=== PATIENT | male | born 1940 | race Caucasian/White ===

== ENCOUNTER → 2018-08-15 19:31 | Outpatient (CLI) | payer OTHER, SELFPAY | PROVIDERS: Visit Provider Physician Assistant | DX: J02.9 Acute pharyngitis, unspecified (principal) | CPT/HCPCS: 87070 ==

== ENCOUNTER 2020-01-13 13:27 | Day surgery (SDC) | payer MEDICARE, SELFPAY ==
[2020-01-13 14:15] VITALS: BP 122/77; PULSE 64; RESP 16; TEMP 36.6; O2SAT 97; BMI 23.3
[2020-01-13] MEDS: LACTATED RINGERS 1,000 ML 200 ML IV (14:15)
--- NOTE | 2020-01-13 15:23 | P.HP_ITS ---
History of Present Illness History of Present Illness Date Patient Seen: 01/13/20 Time Patient Seen: 15:23 Chief complaint: [facility] [place] Narrative: The patient presents for colorectal sreening. He had previous colonoscopy 3 years ago that demonstrated numerous polyps. No personal or family history of colon cancer. On further history denies any recent gastrointestinal symptoms. No nausea, vomiting, abdominal pain, loss of appetite, unexplained weight loss, change in bowel habits, diarrhea, constipation, melena, hematochezia, or bright red blood per rectum. Patient History Medical History Seizure (Acute) Family & Social History Social History: household members children Tobacco & Substance use: Smoking Status Never smoker alcohol intake never Substance Use Type does not use Meds Home Medications and Allergies Home Medications Medication Instructions Recorded Confirmed Type ascorbic acid (vitamin C) [Vitamin 1 g PO DAILY 01/13/20 01/13/20 History C] cholecalciferol (vitamin D3) 25 mcg PO DAILY 01/13/20 01/13/20 History [Vitamin D3] timolol 1 drp EYE-BOTH DAILY 01/13/20 01/13/20 History Allergies Allergy/AdvReac Type Severity Reaction Status Date / Time levetiracetam [From Keppra] Allergy Rash Verified 01/13/20 14:08 Review of Systems Review of Systems Narrative: A 10 point review of systems is negative except as noted in the HPI Exam Vital Signs (past 8 hours): - 01/13/20 14:15 Temperature 98 F Pulse Rate 64 Respiratory Rate 16 Blood Pressure 122/77 Pulse Oximetry 97 Oxygen Delivery Method Room Air Narrative Exam Narrative: General-no acute distress, well nourished thin male HEENT-moist mucous membranes, no scleral icterus Neck-supple, no lymphadenopathy Chest- non labored respirations, clear to auscultation bilaterally Cardiac-regular rate no peripheral edema Abdomen-soft, nontender, non distended Extremities-warm, well perfused Neurological-alert and oriented, no focal deficits Assessment & Plan Assessment and plan (1) Screening for colon cancer: Status: Acute Assessment & Plan narrative: The patient requires colorectal screening and colonoscopy is recommended. Technical details were discussed. Risks, benefits, alternatives explained. Risks including but not limited to myocardial infarction, aspiration, bleeding, pain, missed lesion, incomplete examination, need for further radiographic studies, colonic perforation, and need for major abdominal surgery were discussed. All questions were answered to their satisfaction, and they are in agreement with this plan. COVID-19 COVID-19 status: Negative
--- NOTE | 2020-01-13 15:23 | PM.OP.ENDO ---
Operative Date/Time/Diagnoses Date of procedure: 01/13/20 Time of procedure: 15:23 Pre-op diagnosis: Screening colonoscopy Post-op diagnosis: same Procedure & Clinicians Study performed: Colonoscopy Same procedure as scheduled: Yes Indications: 79-year-old man history of multiple colon polyps is here for routine screening colonoscopy Surgeon: Ari Corea Procedure Notes SCOAP/Timeout: Performed Procedure in detail: Patient placed in left lateral recumbent position. Time out was performed. Procedural sedation was administered with Versed and Fentanyl. Examination began with a thorough inspection of the perianal area there was no evidence of fissures, fistulae, external hemorrhoids or cutaneous malignancy. The colonoscopy scope was then placed into the rectum the the lumen was insufflated with air. The scope was carefully advanced forward. Ultimately the cecum was intubated and confirmed by identification of the ileocecal valve and the confluence of the taenia. The scope was then slowly withdrawn examining colon thoroughly in all directions. In the rectum the rectal columns were identified and retroflexion of the scope was performed for inspection of the distal rectum and anal canal. The colonoscopy was notable for the followin. Quality of the preparation-fair 2. No masses polyps 3. Sigmoid diverticulosis Scope withdrawal time: 6 Sedation minutes: 26 Findings: diverticulosis Specimen(s): none sent Complications: none Impression: Normal colonoscopy Post-procedure Recommendations: High fiber diet Disposition: same day surgery
[2020-01-13] MEDS: MIDAZOLAM 5 MG/5 ML VIAL IV (15:31)
[2020-01-13] MEDS: fentaNYL 250 MCG/5 ML INJ IV (15:31)
[2020-01-13 16:02] VITALS: BP 118/79; PULSE 61; RESP 18; TEMP 36.2; O2SAT 96
[2020-01-13 16:07] VITALS: BP 112/76; PULSE 60; RESP 12; O2SAT 96
[2020-01-13 16:13] VITALS: BP 125/81; PULSE 62; RESP 16; O2SAT 98
[2020-01-13 16:17] VITALS: BP 127/78; PULSE 55; RESP 18; TEMP 36.4; O2SAT 97
--- NOTE | 2020-01-13 16:39 | SUR.PHASEII ---
reported off to CLARITA Goldman
[2020-01-13 16:41] VITALS: BP 131/79; PULSE 53; RESP 18; O2SAT 96
== END 2020-01-13 16:46 | disposition home or self-care (01) ==
PROVIDERS: PCP Family Medicine; Referring Provider Surgery; Visit Provider Surgery
PROC: 0DJD8ZZ Inspection of Lower Intestinal Tract, Via Natural or Artificial Opening Endoscopic (ICD-10-PCS; CPT 45378; principal; 2020-01-13 15:15)
DX: Z12.11 Encounter for screening for malignant neoplasm of colon (principal); Z86.010 Personal history of colon polyps; K57.30 Diverticulosis of large intestine without perforation or abscess without bleeding
CPT/HCPCS: G0105; 99152; 99153; J2250; J3010

== ENCOUNTER → 2021-01-04 10:25 | Outpatient (CLI) | payer MEDICARE, SELFPAY ==
--- NOTE | 2021-01-04 10:29 | DI.RAD.S_ITS ---
PROCEDURE: FL BARIUM SWALLOW W AIR COMPARISON: None. INDICATIONS: Esophageal spasm vs GERD FINDINGS: Normal motility is seen through the esophagus, there is no evidence for esophageal stricture, mass or erosion. The procedure was optimized for identification of reflux, and none was observed. IMPRESSION: Normal barium swallow, no evidence of esophageal mass, stricture, spasm or erosions. No reflux found. Dictated by: Adam Johansen M.D. on 01/04/2021 at 12:00 Approved by: Adam Johansen M.D. on 01/04/2021 at 12:01
== END ==
PROVIDERS: PCP Physician Assistant; Referring Provider Physician Assistant; Visit Provider Physician Assistant
DX: K22.4 Dyskinesia of esophagus (principal); K21.9 Gastro-esophageal reflux disease without esophagitis
CPT/HCPCS: 74221

== ENCOUNTER → 2021-07-09 13:04 | Outpatient (CLI) | payer MEDICARE, SELFPAY ==
[2021-07-09 19:33] LABS: Add Manual Diff / Slide Review NO; Basophils Absolute Auto 0 /uL (0-100); Basophils Percent Auto 0.9 % (0-2); Eosinophils Absolute Auto 200 /uL (0-450); Eosinophils Percent Auto 4.8 % (2-4); Hematocrit 40.4 % (41-53); Hemoglobin 13.8 g/dL (13.5-17.5); Lymphocytes Absolute Auto 900 /uL (1100-4500); Lymphocytes Percent Auto 25.4 % (25-40); Mean Corpuscular HGB Conc 34.1 % (30-36); Mean Corpuscular Hemoglobin 30.1 PG (26-34); Mean Corpuscular Volume 88.2 fL (80-100); Monocytes Absolute Auto 300 /uL (0-900); Monocytes Percent Auto 8.6 % (3-14); Neutrophils Absolute Auto 2200 /uL (1500-7000); Neutrophils Percent Auto 60.3 % (50-75); Platelet Count 190 X10^3/uL (150-400); Red Blood Cell Count 4.58 X10^6/uL (4.5-5.9); Red Cell Distribution Width 14.2 % (11.6-14.8); White Blood Cell Count 3.7 X10^3/uL (4.5-11.0)
[2021-07-09 19:45] LABS: Alanine Aminotransferase 66 IU/L (<50); Albumin 3.8 g/dL (3.5-5.0); Albumin Globulin Ratio 1.5 (1.0-2.8); Alkaline Phosphatase 91 U/L (38-126); Aspartate Aminotransferase 55 IU/L (17-59); BUN Creatinine Ratio 31.7 (6-22); Bilirubin Total 0.8 mg/dL (0.2-1.3); Blood Urea Nitrogen 26 mg/dL (9-20); Calcium 8.7 mg/dL (8.4-10.2); Carbon Dioxide 28 mmol/L (22-32); Chloride 105 mmol/L (98-107); Cholesterol 127 mg/dL (140-199); Estimated Glomerular Filt Rate > 60.0 mL/min (>60); Globulin 2.6 g/dL (1.7-4.1); Glucose 82 mg/dL (80-110); HDL Cholesterol 51 mg/dL (40-60); HEMOLYSIS < 15 (0-50); LDL Cholesterol Calculated 67 mg/dL (<100); Potassium 3.8 mmol/L (3.4-5.1); Sodium 139 mmol/L (137-145); Total Protein 6.4 g/dL (6.3-8.2); Triglycerides 46 mg/dL (35-150)
[2021-07-09 20:11] LABS: Prostate Specific Antigen Scrn 2.77 ng/mL (0.1-4.0)
== END ==
PROVIDERS: PCP Physician Assistant; Visit Provider Physician Assistant
DX: K22.4 Dyskinesia of esophagus (principal); Z12.5 Encounter for screening for malignant neoplasm of prostate; I10 Essential (primary) hypertension; E78.00 Pure hypercholesterolemia, unspecified
CPT/HCPCS: 80053; 80061; 85025; G0103

== ENCOUNTER → 2021-09-14 09:17 | Outpatient (CLI) | payer MEDICARE, SELFPAY ==
[2021-09-14 18:34] LABS: Alanine Aminotransferase 40 IU/L (<50); Albumin 4.2 g/dL (3.5-5.0); Albumin Globulin Ratio 1.5 (1.0-2.8); Alkaline Phosphatase 102 U/L (38-126); Aspartate Aminotransferase 50 IU/L (17-59); Blood Urea Nitrogen 16 mg/dL (9-20); Calcium 8.7 mg/dL (8.4-10.2); Carbon Dioxide 31 mmol/L (22-32); Chloride 104 mmol/L (98-107); Estimated Glomerular Filt Rate > 60 mL/min (>60); Globulin 2.8 g/dL (1.7-4.1); Glucose 91 mg/dL (80-110); HEMOLYSIS < 15 (0-50); Sodium 139 mmol/L (137-145)
[2021-09-14 18:41] LABS: NT-proBNP (BNP-Adult 18+) 99 pg/mL (<450)
[2021-09-14 18:46] LABS: Add Manual Diff / Slide Review NO; Basophils Absolute Auto 0 /uL (0-100); Basophils Percent Auto 0.8 % (0-2); Eosinophils Absolute Auto 200 /uL (0-450); Eosinophils Percent Auto 5.6 % (2-4); Hematocrit 45.8 % (41-53); Hemoglobin 15.6 g/dL (13.5-17.5); Lymphocytes Absolute Auto 1000 /uL (1100-4500); Lymphocytes Percent Auto 25.7 % (25-40); Mean Corpuscular Hemoglobin 30.1 PG (26-34); Mean Corpuscular Volume 88.5 fL (80-100); Monocytes Absolute Auto 300 /uL (0-900); Neutrophils Absolute Auto 2300 /uL (1500-7000); Neutrophils Percent Auto 59.9 % (50-75); Platelet Count 169 X10^3/uL (150-400); Red Blood Cell Count 5.17 X10^6/uL (4.5-5.9); Red Cell Distribution Width 13.5 % (11.6-14.8); White Blood Cell Count 3.9 X10^3/uL (4.5-11.0)
[2021-09-14 18:51] LABS: D Dimer 244 ng/mL (<230)
== END ==
PROVIDERS: PCP Physician Assistant; Visit Provider Physician Assistant
DX: R60.0 Localized edema (principal)
CPT/HCPCS: 80053; 83880; 85025; 85379

== ENCOUNTER 2021-09-20 08:52 | Emergency (ER) | payer MEDICARE, SELFPAY ==
[2021-09-20 09:00] VITALS: BP 118/80; PULSE 54; RESP 14; TEMP 36.8; O2SAT 98; BMI 24.3
--- NOTE | 2021-09-20 09:51 | ED.EXTPRO ---
HPI - Extremity Problem General Chief complaint: Extremity Problem,Nontraumatic Stated complaint: US for knees- Has clot in rt leg- sent by [facility] Time Seen by Provider: 09/20/21 09:39 Source: patient Mode of arrival: Ambulatory Limitations: no limitations History of Present Illness HPI Narrative: This is a 80-year-old male who comes emergency department for DVT rule out. Patient had some swelling of his right calf and into his foot for several days which has resolved. Remotely he had injury to his knee with a twisting injury. Over time and with PT this is improved. He is not having any pain he has not had any pain with the swelling in his leg. He states it was not warm or hot at any point. He has never had any numbness or tingling. He states he was using massage with sort of a hammering type motion and noticed a very small area of bruising over the calf which was never painful and appears to be improving. Patient is on medication for dyslipidemia. No prior blood clots, he is quite active in cycles regularly. He states the veins in his legs are prominent but this is normal for him. Patient does not have any family history of blood clots. He did have a D-dimer with his primary care on or kiss and it was noted to be slightly elevated at 244 on July 15. He states he was started on a blood thinner but he does not know the name I do not see it in their notes today. Patient has no other complaints at this time. Related Data Home Medications Medication Instructions Recorded Confirmed cholecalciferol (vitamin D3) 25 25 mcg PO DAILY 01/13/20 09/14/21 mcg (1,000 unit) tablet (Vitamin D3) timolol 0.5 % eye drops 1 drp EYE-BOTH DAILY 01/13/20 07/03/21 Previous Rx's Medication Instructions Recorded atorvastatin 80 mg tablet 80 mg PO BEDTIME #90 tab 02/26/21 hydrochlorothiazide 25 mg tablet 25 mg PO DAILY #30 tab 09/14/21 naproxen 500 mg tablet 500 mg PO BID PRN #40 tab 09/14/21 Allergies Allergy/AdvReac Type Severity Reaction Status Date / Time levetiracetam [From Kera] Allergy Rash Verified 09/21/21 09:44 Review of Systems Review of Systems ROS Unobtainable: All systems reviewed & are unremarkable except as noted in HPI and below Patient History Medical History Closed pertrochanteric fracture of left femur Rash and other nonspecific skin eruption Screening for colon cancer Seizure Social History household members: children Smoking Status: Never smoker alcohol intake: never Smoking Status: Never smoker alcohol intake frequency: holidays/special occasions only Substance Use Type: does not use Exam Narrative Exam Narrative: GENERAL: Alert and oriented x three, male in mild distress. HEENT: Head normocephalic, atraumatic, EOMI, pupils reactive, face symmetric, moist mucous membranes NECK: Supple, full range of motion CARDIOVASCULAR: Regular rate and rhythm without murmurs, rubs or gallops. RESPIRATORY: Breath sounds equal bilaterally, no wheezes rales or rhonchi. ABDOMEN: Soft, nontender. Normoactive bowel sounds all 4 quadrants. No guarding or rebound, rigidity, no mass EXTREMITIES: Normal range of motion, no clubbing or edema. Neurovascularly intact. Patient has prominent veins of bilateral lower extremities. He is nontender. He has a small quarter-sized area of ecchymosis on the right calf. It is nontender, there is no hematoma palpated under nice. There is no warmth, erythema or other skin changes to the leg. Negative Homans. NEUROLOGICAL: Cranial nerves II through XII grossly intact. Moving all extremities SKIN: Warm, dry, no petechiae, no rashes or lesions. Initial Vital Signs Initial Vital Signs: Vital Signs Temperature 98.3 F 09/20/21 09:00 Pulse Rate 54 L 09/20/21 09:00 Respiratory Rate 14 09/20/21 09:00 Blood Pressure 118/80 09/20/21 09:00 Pulse Oximetry 98 09/20/21 09:00 Course Orders Ordered: ED Orders 09/20/21 10:36 US periph venous low extrem rt Stat Vital Signs Vital signs: Vital Signs - 8 hr 09/20/21 09:00 Temperature 98.3 F Pulse Rate 54 L Respiratory Rate 14 Blood Pressure 118/80 Pulse Oximetry 98 MDM - Extremity (Nontraumatic) Imaging Data US - DVT: Radiologist's Impression: Launch?[address] [address] Ultrasound Report Signed Patient: Dennis Paula MR#: [id number] : 1940 Acct:[id number] Age/Sex: 80 / M Date of Service: 09/20/21 Loc: ED Accession Number: [id number] ?? Procedure: US periph venous low extrem rt Ordering Provider: Lauren Arcos D.O. PROCEDURE:? US PERIPH VENOUS LOW EXTREM RT ? INDICATIONS:? r/u dvt. leg swelling for several days that has improved. ? TECHNIQUE:? Real-time imaging, as well as color and pulse Doppler interrogation, were performed of the lower extremity deep veins from the inguinal ligament to the popliteal fossa.? ? COMPARISON:? None. ? FINDINGS:? The common femoral, femoral and popliteal veins are normally compressible, and free of intraluminal thrombus.? Color and pulse Doppler demonstrate normal phasic intraluminal flow.? There is normal augmentation response to distal compression maneuver. ? ? IMPRESSION:? ? 1. No DVT in the right lower extremity. ? 2. Preliminary report conveyed by the gear cutting machine operator to the ordering provider. ? ? ? Dictated by: Court De Souza M.D. on 09/20/2021 at 11:09 ? ? Approved by: Court De Souza M.D. on 09/20/2021 at 11:10?? MDM Narrative Medical decision making narrative: This is a 80-year-old male sent from [facility] for rule out DVT. Patient had a slightly elevated D-dimer. He had swelling but no pain, warmth erythema his leg. He states the swelling is improved. He had massage that uses a hammer/pounding movement that may have caused some irritation. Has a small bruise that is nontender with no hematoma. DVT is negative. Patient's symptoms have improved. Plan for watchful waiting of bruise. Discharge Plan Departure Patient Disposition: Home Clinical Impression: Superficial bruising of lower leg Activity Restrictions/Additional Instructions: Your imaging today is negative for DVT. I cannot tell from your providers note if they started you on anticoagulant or blood thinner but you can stop any blood thinners that have been provided unless it was given for an alternative reason. There is a small amount of bruising on your calf. Continue to monitor this it should resolve over the next several weeks. If it increases in size, becomes painful or changes it should be re-evaluated. Please return for new leg pain, persistent swelling, redness, warmth, new numbness or tingling or other new or concerning symptoms. Prescriptions: No Action timolol 0.5 % Drops 1 drp EYE-BOTH DAILY 0RF cholecalciferol (vitamin D3) [Vitamin D3] 25 mcg (1,000 unit) Tablet 25 mcg PO DAILY 0RF atorvastatin 80 mg tablet 80 mg PO BEDTIME Qty: 90 4RF hydrochlorothiazide 25 mg tablet 25 mg PO DAILY Qty: 30 1RF naproxen 500 mg tablet 500 mg PO BID PRN (Reason: pain) Qty: 40 0RF Rx Instructions: Take with food; do not combine with other NSAIDS Referrals: Kylee Jones PA-C [Primary Care Provider] -
--- NOTE | 2021-09-20 10:36 | DI.US.S_ITS ---
PROCEDURE: US PERIPH VENOUS LOW EXTREM RT INDICATIONS: r/u dvt. leg swelling for several days that has improved. TECHNIQUE: Real-time imaging, as well as color and pulse Doppler interrogation, were performed of the lower extremity deep veins from the inguinal ligament to the popliteal fossa. COMPARISON: None. FINDINGS: The common femoral, femoral and popliteal veins are normally compressible, and free of intraluminal thrombus. Color and pulse Doppler demonstrate normal phasic intraluminal flow. There is normal augmentation response to distal compression maneuver. IMPRESSION: 1. No DVT in the right lower extremity. 2. Preliminary report conveyed by the compensation expert to the ordering provider. Dictated by: Court De Souza M.D. on 09/20/2021 at 11:09 Approved by: Court De Souza M.D. on 09/20/2021 at 11:10
[2021-09-20 11:36] VITALS: BP 101/68; PULSE 48; RESP 18; O2SAT 98
[2021-09-20 12:44] VITALS: BP 124/73; PULSE 50; RESP 18; O2SAT 98
== END 2021-09-20 12:46 | disposition home or self-care (01) ==
PROVIDERS: Emergency Provider Emergency Medicine; PCP Physician Assistant
DX: S80.10XA Contusion of unspecified lower leg, initial encounter (principal)
CPT/HCPCS: 93971; 99281; 99283

== ENCOUNTER → 2021-10-16 10:46 | Outpatient (CLI) | payer MEDICARE, SELFPAY ==
[2021-10-16 20:39] LABS: Vitamin B12 Reflex MMA if <400 690 pg/mL (239-931)
== END ==
PROVIDERS: PCP Physician Assistant; Visit Provider Physician Assistant
DX: R20.0 Anesthesia of skin (principal)
CPT/HCPCS: 82607

== ENCOUNTER → 2022-06-25 13:36 | Outpatient (CLI) | payer MEDICARE, SELFPAY ==
[2022-06-25 19:52] LABS: Add Manual Diff / Slide Review NO; Basophils Absolute Auto 0 /uL (0-100); Basophils Percent Auto 1.1 % (0-2); Eosinophils Absolute Auto 100 /uL (0-450); Eosinophils Percent Auto 2.3 % (2-4); Hematocrit 44.5 % (41-53); Hemoglobin 15.2 g/dL (13.5-17.5); Lymphocytes Absolute Auto 1000 /uL (1100-4500); Lymphocytes Percent Auto 25.7 % (25-40); Mean Corpuscular HGB Conc 34.1 % (30-36); Mean Corpuscular Hemoglobin 30.3 PG (26-34); Monocytes Absolute Auto 300 /uL (0-900); Neutrophils Absolute Auto 2400 /uL (1500-7000); Neutrophils Percent Auto 62.9 % (50-75); Platelet Count 195 X10^3/uL (150-400); Red Cell Distribution Width 14.2 % (11.6-14.8); White Blood Cell Count 3.8 X10^3/uL (4.5-11.0)
[2022-06-25 19:58] LABS: Alanine Aminotransferase 30 IU/L (<50); Albumin 3.9 g/dL (3.5-5.0); Albumin Globulin Ratio 1.5 (1.0-2.8); Alkaline Phosphatase 101 U/L (38-126); Aspartate Aminotransferase 37 IU/L (17-59); BUN Creatinine Ratio 22.8 (6-22); Bilirubin Total 0.8 mg/dL (0.2-1.3); Blood Urea Nitrogen 18 mg/dL (9-20); Calcium 8.9 mg/dL (8.4-10.2); Carbon Dioxide 30 mmol/L (22-32); Chloride 102 mmol/L (98-107); Estimated Glomerular Filt Rate > 60 mL/min (>60); Globulin 2.6 g/dL (1.7-4.1); Glucose 89 mg/dL (80-110); HEMOLYSIS < 15 (0-50); Potassium 4.1 mmol/L (3.4-5.1); Sodium 139 mmol/L (137-145); Total Protein 6.5 g/dL (6.3-8.2)
[2022-06-25 20:02] LABS: NT-proBNP (BNP-Adult 18+) 53 pg/mL (<450)
[2022-06-27 16:43] LABS: HIV 1 & 2 Ab/Ag 4th Gen Combo NEGATIVE (NEGATIVE); Hep C Virus Ab w/Reflex Quant NEGATIVE s/c (NEGATIVE)
== END ==
PROVIDERS: PCP Physician Assistant; Visit Provider Physician Assistant
DX: I10 Essential (primary) hypertension (principal); R60.0 Localized edema; D72.810 Lymphocytopenia; Z11.59 Encounter for screening for other viral diseases
CPT/HCPCS: 80053; 83880; 85025; 86803; 87389

== ENCOUNTER → 2022-08-12 12:15 | Outpatient (CLI) | payer MEDICARE, SELFPAY ==
[2022-08-12 21:07] LABS: Folate 12.4 ng/mL (2.76-20.0); Vitamin B12 Reflex MMA if <400 857 pg/mL (239-931)
== END ==
PROVIDERS: PCP Physician Assistant; Visit Provider Physician Assistant
DX: D72.810 Lymphocytopenia (principal)
CPT/HCPCS: 82607; 82746

== ENCOUNTER → 2023-01-19 09:24 | Outpatient (CLI) | payer MEDICARE, SELFPAY ==
--- NOTE | 2023-01-19 09:27 | DI.MRI.S_ITS ---
PROCEDURE: MR SHOULDER RT WO CON INDICATIONS: rotator cuff tear TECHNIQUE: Noncontrast oblique coronal T2 fast spin echo with fat saturation, oblique sagittal T1 spin echo and T2 fast spin echo with fat saturation, axial T1 spin echo and T2 fast spin echo with fat saturation through the shoulder. COMPARISON: None. FINDINGS: Image quality: Degraded by motion artifact. Rotator cuff: Full-thickness tearing of the entire supraspinatus and infraspinatus tendon with medial retraction. Supraspinatus atrophy. Teres minor is intact. Low-grade intrasubstance tearing of the upper subscapularis tendon at the humeral insertion site extending to the musculotendinous juncture. Bones and bursae: No bone marrow contusions or fractures. Moderate glenohumeral acromioclavicular joint degeneration. The acromion demonstrates conventional anatomy, without an os acromiale. No pathologic subacromial-subdeltoid or subcoracoid bursal fluid is present. Capsule and soft tissues: There is diffuse glenoid labral tearing. High-grade tearing of the biceps tendon. The rotator interval appears normal, without fibrosis. The coracohumeral ligament is normal in thickness. IMPRESSION: 1. Full-thickness tearing of the supraspinatus and infraspinatus tendons. 2. Low-grade tearing of the subscapularis tendon. 3. Acromioclavicular and glenohumeral joint osteoarthritis. 4. Glenoid labral tearing. 5. Biceps tendon tear. Dictated by: Barbie Washington M.D. on 01/19/2023 at 12:26 Approved by: Barbie Washington M.D. on 01/19/2023 at 12:27
== END ==
PROVIDERS: PCP Family Medicine; Referring Provider Family Medicine; Visit Provider Family Medicine
DX: M75.121 Complete rotator cuff tear or rupture of right shoulder, not specified as traumatic (principal); M19.011 Primary osteoarthritis, right shoulder; S43.491A Other sprain of right shoulder joint, initial encounter; S46.211A Strain of muscle, fascia and tendon of other parts of biceps, right arm, initial encounter
CPT/HCPCS: 73221

== ENCOUNTER → 2023-01-31 11:53 | Outpatient (CLI) | payer MEDICARE, SELFPAY ==
[2023-01-31 12:21] LABS: Add Manual Diff / Slide Review NO; Basophils Absolute Auto 100 /uL (0-100); Basophils Percent Auto 1.3 % (0-2); Eosinophils Absolute Auto 400 /uL (0-450); Hemoglobin 14.3 g/dL (13.5-17.5); Lymphocytes Absolute Auto 1200 /uL (1100-4500); Lymphocytes Percent Auto 18.5 % (25-40); Mean Corpuscular HGB Conc 34.1 % (30-36); Mean Corpuscular Hemoglobin 29.7 PG (26-34); Mean Corpuscular Volume 87.1 fL (80-100); Monocytes Absolute Auto 500 /uL (0-900); Monocytes Percent Auto 7.2 % (3-14); Neutrophils Absolute Auto 4400 /uL (1500-7000); Platelet Count 226 X10^3/uL (150-400); Red Blood Cell Count 4.82 X10^6/uL (4.5-5.9); White Blood Cell Count 6.5 X10^3/uL (4.5-11.0)
[2023-01-31 12:36] LABS: BUN Creatinine Ratio 36.9 (6-22); Blood Urea Nitrogen 24 mg/dL (9-20); Calcium 9.1 mg/dL (8.4-10.2); Carbon Dioxide 25 mmol/L (22-32); Chloride 106 mmol/L (98-107); Estimated Glomerular Filt Rate > 60 mL/min (>60); Glucose 81 mg/dL (80-110); HEMOLYSIS < 15 (0-50); Potassium 3.8 mmol/L (3.4-5.1); Sodium 138 mmol/L (137-145)
== END ==
PROVIDERS: PCP Family Medicine; Referring Provider Orthopaedic Surgery; Visit Provider Orthopaedic Surgery
DX: Z01.818 Encounter for other preprocedural examination (principal); Z01.812 Encounter for preprocedural laboratory examination
CPT/HCPCS: 36415; 80048; 85025; 93005

== ENCOUNTER → 2023-02-10 14:56 | Outpatient (CLI) | payer MEDICARE, SELFPAY ==
--- NOTE | 2023-02-10 | DI.CT.S_ITS ---
PROCEDURE: CT UE RT WO CON INDICATIONS: Primary osteoarthritis, right shoulder TECHNIQUE: Noncontrast 1-1.5 mm thick sections acquired from the acromioclavicular joint to the inferior scapula, with coronal and sagittal reformatting. COMPARISON: [facility], MR, MR SHOULDER RT WO CON, 01/19/2023, 11:04. [facility], CR, XR SHOULDER 2+ VIEWS RIGHT, 01/29/2023, 15:09. FINDINGS: Image quality: Excellent. Bones: Exam performed for pre-surgical planning. No acute osseous fracture. Moderate to severe joint space narrowing is seen at the glenohumeral joint with marginal osteophyte formation and mild remodeling of the articular surfaces. No significant glenoid retroversion or anteversion. Humeral head is high riding and abuts the undersurface of the acromion with associated degenerative changes. Moderate degenerative changes are seen at the acromioclavicular joint. Degenerative changes are seen in the included spine. Sternotomy wires are present. Soft tissues: Small glenohumeral effusion. Mild atrophy of the supraspinatus and infraspinatus muscles is consistent with underlying rotator cuff tendon tearing as previously seen. The tendons, ligaments, labrum, and articular cartilages are not well evaluated with CT. No significant axillary lymphadenopathy. The included portions of the right lung are clear. IMPRESSION: 1. Exam performed for pre-surgical planning. 2. Moderate glenohumeral and acromioclavicular osteoarthrosis. 3. Small glenohumeral effusion. 4. High-riding humeral head and mild atrophy of the supraspinatus and infraspinatus muscles is consistent with chronic rotator cuff tendon tearing as seen on the prior MRI. Approved by: Edilson Garcia M.D. on 02/10/2023 at 18:07
== END ==
PROVIDERS: PCP Family Medicine; Referring Provider Orthopaedic Surgery; Visit Provider Orthopaedic Surgery
DX: M19.011 Primary osteoarthritis, right shoulder (principal); M25.411 Effusion, right shoulder; M62.511 Muscle wasting and atrophy, not elsewhere classified, right shoulder
CPT/HCPCS: 73200

== ENCOUNTER 2023-02-19 10:56 | Inpatient (IN) | payer OTHER, SELFPAY ==
[2023-02-14 10:31] VITALS: BMI 22.1
[2023-02-19] VITALS (9 sets, daily range): BP systolic 133–160; BP diastolic 84–95; PULSE 56–70; RESP 14–20; TEMP 36.6–36.7; O2SAT 94–99; BMI 21.4
--- NOTE | 2023-02-19 11:00 | DI.RAD.S_ITS ---
PROCEDURE: XR SHOULDER RT 1V INDICATIONS: RTSA TECHNIQUE: 1 views of the shoulder were acquired. COMPARISON: None. FINDINGS: Bones: Right shoulder arthroplasty, which appears normally aligned. Soft tissues: Subcutaneous gas and swelling overlying the surgical bed, as expected. IMPRESSION: Expected postoperative appearance of a right shoulder arthroplasty. Dictated by: Wiley Bullard M.D. on 02/19/2023 at 17:12 Approved by: Wiley Bullard M.D. on 02/19/2023 at 17:13
--- NOTE | 2023-02-19 14:08 | PM.PREOP ---
Pre-operative Note Interval Note History & Physical reviewed/Exam performed by Physician: Yes Changes to H&P: No
[2023-02-19] MEDS: ACETAMINOPHEN 325 MG TABLET 975 MG PO (14:10)
[2023-02-19] MEDS: LACTATED RINGERS 1,000 ML 42 ML IV ×2 (14:15→16:25)
[2023-02-19] MEDS: CEFAZOLIN 2 GM/100 ML PREMIX 100 ML IV (15:00)
[2023-02-19] MEDS: TRANEXAMIC ACID 1,000 MG VIAL 1000 MG INJ ×2 (15:05→16:20)
--- NOTE | 2023-02-19 15:18 | SUR.OPER ---
Beach chair with Skytron shoulder positioner. Lower body on padded OR bed. Head in foam padded head cradle, secured with straps. Non-operative arm secured <90 degrees abduction. Pillow under knees. Safety belt at thigh. Cloth tape over blanket over lower legs.
--- NOTE | 2023-02-19 16:37 | PM.OP.1 ---
Operative Date/Time/Diagnoses Date of procedure: 02/19/23 Time of procedure: 16:38 Pre-op diagnosis: Right rotator cuff arthropathy Post-op diagnosis: same Procedure & Clinicians Procedure: Right reverse total shoulder arthroplasty Same procedure as scheduled: Yes Indications: Indications: This is a who has rotator cuff arthropathy. Symptoms have been present for years, insidious onset. Patient has failed conservative therapy including injections, physical therapy, anti-inflammatories and activity modification. After extensive discussion in clinic, they wished to go forward with surgery. Risks and benefits were described including the risk of infection, bleeding, damage to internal structures including nerves. We also discussed the risk of failure of surgery and the need for revision surgery as well as the risk of anesthesia. The patient expressed understanding with these risks and wished to go forward with surgery. Surgeon: Bennie Cordero Composition Worker: Cyrus Ramachandran Click Yes if Unassisted: No Anesthesia Type: General Operative Notes Findings: Findings: Osteoarthritis of the glenoid and humeral head as well as a defient rotator cuff as noted on preoperative imaging and under direct visualization Closure Type: primary Specimen(s): none sent Prosthetic devices, grafts, tissues, transplants, or devices: Tornier implants Base plate: standard 25 mm, +3 mm offset Glenosphere: 39 mm Stem: Perform 4 Poly: +0 concentric Estimated Blood Loss (mL): 50 Blood products transfused: none Procedure in detail: Patient was seen in the preoperative holding unit. The correct right shoulder was identified and marked with my initials. Again we discussed the risks and benefits of surgery and they wished to go forward with surgery. The patient was brought back to the operating room and placed supine on the operating table. Smooth endotracheal intubation was performed by anesthesia. All prominences were padded and they were placed into the beach chair position. Intravenous antibiotics were given. The right shoulder was then prepped with the standard sterile preparation and draping. A time-out was then performed in my initials were again identified on the correct shoulder. 1 g of IV tranexamic acid was given. A standard deltopectoral incision was made. Skin flaps were made. The cephalic vein was identified and retracted laterally. This was protected throughout the remainder of the case. Sharp dissection was made along the deltoid, subacromial and subcoracoid space to release adhesions. The conjoined tendon was identified and the axillary nerve was palpated and continuous using the tug test. It was protected throughout the remainder of the case. A brown retractor was placed underneath the deltoid muscle and a darach retractor underneath the conjoint tendon. The anterior circumflex artery and associated veins on the lower border of the subscapularis were identified and tied off using 0-Vicryl. The biceps tendon was identified in the bicipital groove. This was released from its sheath, and taken from its origin on the glenoid and tied into the pectoralis tendon for a solid tenodesis. We then began a subscapularis peel. The subscapularis was tagged with an Ethibond suture. A 360 degree circumferential release of the subscapularis was performed with protection of the axillary nerve. The coracohumeral ligament was released at the base of the coracoid. The coracoacromial ligament was left intact. The shoulder was then dislocated. Osteophytes were removed using combination of rongeur and osteotome. The rotator cuff was noted to be insufficient. An intramedullary guide was used set at version of 30?. Using an oscillating saw a conservative humeral head cut was made. Impaction reamers were reamed up to a size 4 stem with a built-in angle 135?. A neck protector was placed. Attention was then turned to the glenoid. After retracting the humeral head posteriorly a circumferential release was performed of the capsule with protection of the axillary nerve. The labrum was then released starting at the biceps anchor and going around the rim a small amount of triceps was released from the inferior glenoid. A center guide pin was then placed using the guide, followed by Reamer. After adequate cartilage was removed the center drill hole was drilled and measured. The base plate was then implanted and screwed into place. The superior drill hole was drilled and filled in a nonlocking fashion, followed by the inferior in nonlocking and anterior holes in locking fashion, the posterior hole was also filled. A 39 glenosphere was then selected and screwed into place onto the base plate. Turning back to the humerus, the humeral head was delivered and trialed with a 0 concentric. The arm was taken through range of motion and this was felt to be stable. The trial was then removed and a dilute Betadine wash was then performed with 1 L of sterile saline. Before placing the final implant, drill holes were made in the bicipital groove for the subscapularis repair, and sutures were passed through the drill holes. The final stem was then impacted into the humerus. The shoulder was then reduced and again brought through range of motion and was felt to be stable. The interval was then closed using #2 Ethibond. The subscapularis was then repaired using a modified racking hitch with nice loupes. The deltopectoral interval was then closed with #2 Ethibond. The skin was closed with 2-0 PDS and Monocryl followed by Aquacel dressing. Patient was awoken from anesthesia and brought back to the postoperative recovery unit without issue. They were placed into a sling. Assisting participation: This operation could not have been safely performed (without compromising the technical results or length of the procedure) without the assistance of a skilled drug safety assistant. The drug safety assistant was medically necessary for proper positioning, retraction and manipulation of instruments, proper exposure, graft prep, and manipulation of tissue. Complications: none Post-operative Condition: stable Disposition: PACU Plan for aftercare: Postoperative instructions: Sling to remain on for 6 weeks. No external rotation past neutral for 6 weeks. Okay for him to come off her shower. Okay to shower over the Aquacel dressing. If any water gets underneath the dressing, remove the dressing. First postoperative visit in 2 weeks.
[2023-02-19] MEDS: ONDANSETRON 4 MG/2 ML INJ IV (16:59)
[2023-02-19] MEDS: OXYCODONE IR 5 MG TABLET PO ×2 (16:59→18:01)
[2023-02-19] MEDS: HYDROMORPHONE 1 MG INJ IV ×2 (17:00→17:06)
[2023-02-19] MEDS: hydrOXYzine 50 MG/ML INJ 25 MG IM (17:22)
== END 2023-02-19 18:30 | disposition home or self-care (01) | DRG 483 ==
PROVIDERS: Admitting Provider Orthopaedic Surgery; PCP Family Medicine; Referring Provider Orthopaedic Surgery; Visit Provider Orthopaedic Surgery
PROC: 0RRJ00Z Replacement of Right Shoulder Joint with Reverse Ball and Socket Synthetic Substitute, Open Approach (ICD-10-PCS; CPT 23472; principal; 2023-02-19 13:45)
DX: M19.011 Primary osteoarthritis, right shoulder (principal)
CPT/HCPCS: 64450; 73020; C1776; J0690; J1100; J1170; J2405; J2704; J3010; J3410

== ENCOUNTER → 2023-08-25 10:59 | Outpatient (CLI) | payer MEDICARE, SELFPAY ==
--- NOTE | 2023-08-25 11:00 | DI.MRI.S_ITS ---
PROCEDURE: MR KNEE RT WO CON INDICATIONS: knee pain right TECHNIQUE: Noncontrast sagittal PD fast spin echo and T2 fast spin echo with fat saturation, sagittal 3-D FLASH with fat saturation; coronal T1 spin echo and PD fast spin echo with fat saturation, and axial PD fast spin echo with fat saturation through the knee. COMPARISON: [facility] ([place]), CR, XR KNEE RT 3V, 08/04/2023, 14:34. [facility] [place], CR, XR SHOULDER 2+ VIEWS RIGHT, 08/06/2023, 13:32. FINDINGS: Image quality: Excellent. Menisci: In the medial meniscus, there is horizontal oblique tear of the posterior horn. There is a small intrameniscal cyst in the posterior horn. There is mild extrusion of the medial meniscus body. In the lateral meniscus, there is a complex tear involving the posterior horn and the meniscus body, with near maceration at the junction of the meniscus body and posterior horn. No extrusion of the lateral meniscus body. Cruciate ligaments: The anterior and posterior cruciate ligaments appear intact. Medial structures: The medial collateral ligament appears intact. The posterior oblique ligament, semimembranosus tendon insertions, oblique popliteal ligament, and meniscocapsular junction appear intact. Visualized portions of the pes anserinus tendons appear normal. No abnormal bursal fluid. Lateral structures: The lateral collateral ligament, long and short heads of the biceps femoris tendon appear intact. The popliteus tendon appears normal; the popliteofibular ligament appears intact. The posterosuperior and anteroinferior popliteomeniscal fascicles appear intact. The arcuate and fabellofibular ligaments appear intact, on either side of the lateral inferior geniculate artery. Iliotibial band appears normal. Anterior structures: Small ossifications superficial to the inferior pole of the patella with marrow edema, representing recent injury. The quadriceps and the patellar tendon are unremarkable. Hoffa's fat pad edema. Bones and cartilage: Mild chondral irregularity of the patella. Mild chondral irregularity of the medial trochlea. Medial trochlear osteophytosis. High-grade chondral loss in the central trochlea. Cartilage of the lateral trochlea is unremarkable. In the medial compartment, there is mild chondral thinning in the weight-bearing portion of the femoral condyle. There is mild marrow edema with subchondral cystic changes in the medial tibial plateau, most pronounced anteriorly, likely representing degenerative changes. In the lateral compartment, there is complete chondral denudation in the femoral condyle and the tibial plateau, with marked subchondral marrow edema. Subchondral cystic changes at the tibial eminence, reactive. No acute fracture. Joint space: Moderate knee effusion. Large popliteal cyst. No intra-articular body. The popliteal vasculature is unremarkable. IMPRESSION: 1. Horizontal oblique tear of the posterior horn of the medial meniscus. 2. Complex tear of the lateral meniscus with near maceration at the junction of the meniscus body and posterior horn. 3. Mild chondrosis of the patellofemoral and the medial compartment. 4. Severe chondrosis of the lateral compartment with marked subchondral marrow edema. 5. Moderate knee effusion. Large popliteal cyst. 6. Small ossification with marrow edema superficial to the inferior pole of the patella, representing recent injury. Dictated by: Rox Varela M.D. on 08/25/2023 at 14:41 Approved by: Rox Varela M.D. on 08/25/2023 at 14:55
== END ==
PROVIDERS: PCP Family Medicine; Referring Provider Family Medicine; Visit Provider Family Medicine
DX: S83.241A Other tear of medial meniscus, current injury, right knee, initial encounter (principal); S83.271A Complex tear of lateral meniscus, current injury, right knee, initial encounter; M17.11 Unilateral primary osteoarthritis, right knee; M22.41 Chondromalacia patellae, right knee; M25.461 Effusion, right knee; M71.21 Synovial cyst of popliteal space [Baker], right knee; X58.XXXA Exposure to other specified factors, initial encounter
CPT/HCPCS: 73721

== ENCOUNTER → 2024-01-21 10:37 | Outpatient (CLI) | payer MEDICARE, SELFPAY ==
--- NOTE | 2024-01-21 10:40 | EKG_ITS ---
[address] [id number] [address] [address] Test Date: 2024-01-21 Pat Name: Dennis Paula Department: Room: Gender: Male Staff Services Manager: carmita : 1940 Requested By: Order Number: [id number] Reading MD: Stone Patel Measurements Intervals Index Rate: 54 P: 35 NM: 162 QRS: -20 QRSD: 82 T: 59 QT: 478 QTc: 453 Interpretive Statements Sinus bradycardia Electronically Signed On 01-22-2024 19:51:20 PDT by Stone Patel
[2024-01-21 12:09] LABS: Add Manual Diff / Slide Review NO; Basophils Absolute Auto 100 /uL (0-100); Basophils Percent Auto 1.8 % (0-2); Eosinophils Absolute Auto 400 /uL (0-450); Eosinophils Percent Auto 9.5 % (2-4); Hematocrit 42.9 % (41-53); Hemoglobin 14.9 g/dL (13.5-17.5); Lymphocytes Absolute Auto 1000 /uL (1100-4500); Mean Corpuscular HGB Conc 34.7 % (30-36); Mean Corpuscular Hemoglobin 29.8 PG (26-34); Mean Corpuscular Volume 86.1 fL (80-100); Monocytes Absolute Auto 300 /uL (0-900); Neutrophils Absolute Auto 2700 /uL (1500-7000); Neutrophils Percent Auto 59.7 % (50-75); Platelet Count 214 X10^3/uL (150-400); Red Blood Cell Count 4.98 X10^6/uL (4.5-5.9); Red Cell Distribution Width 14.4 % (11.6-14.8); White Blood Cell Count 4.5 X10^3/uL (4.5-11.0)
[2024-01-21 12:27] LABS: Albumin 3.8 g/dL (3.5-5.0); BUN Creatinine Ratio 24.1 (6-22); Blood Urea Nitrogen 19 mg/dL (9-20); Calcium 8.6 mg/dL (8.4-10.2); Carbon Dioxide 27 mmol/L (22-32); Chloride 106 mmol/L (98-107); Estimated Glomerular Filt Rate > 60 mL/min (>60); Glucose 85 mg/dL (80-110); HEMOLYSIS < 15 (0-50); Potassium 4.2 mmol/L (3.4-5.1); Sodium 139 mmol/L (137-145)
[2024-01-21 12:34] LABS: Prealbumin 22.5 mg/dL (17.6-36.0)
[2024-01-21 12:46] LABS: Hemoglobin A1C% w Est Avg Glu 4.8 % (4.0-6.0)
[2024-01-21 17:09] LABS: Vitamin D 25 Hydroxy (D3) 33.1 ng/mL (30.0-100.0)
== END ==
PROVIDERS: PCP Family Medicine; Referring Provider Orthopaedic Surgery Adult Reconstructive Orthopaedic Surgery; Visit Provider Orthopaedic Surgery Adult Reconstructive Orthopaedic Surgery
DX: Z01.818 Encounter for other preprocedural examination (principal); E55.9 Vitamin D deficiency, unspecified; R73.9 Hyperglycemia, unspecified; R77.0 Abnormality of albumin; Z01.812 Encounter for preprocedural laboratory examination
CPT/HCPCS: 36415; 80048; 82040; 82306; 83036; 84134; 85025; 93005

== ENCOUNTER → 2024-02-18 14:50 | Outpatient (CLI) | payer MEDICARE, SELFPAY ==
[2024-02-18 20:33] LABS: Add Manual Diff / Slide Review NO; Basophils Absolute Auto 100 /uL (0-100); Basophils Percent Auto 1.4 % (0-2); Eosinophils Absolute Auto 400 /uL (0-450); Eosinophils Percent Auto 9.1 % (2-4); Hematocrit 45.3 % (41-53); Hemoglobin 15.6 g/dL (13.5-17.5); Lymphocytes Absolute Auto 900 /uL (1100-4500); Lymphocytes Percent Auto 19.9 % (25-40); Mean Corpuscular HGB Conc 34.4 % (30-36); Mean Corpuscular Volume 87.3 fL (80-100); Monocytes Absolute Auto 300 /uL (0-900); Monocytes Percent Auto 7.2 % (3-14); Neutrophils Absolute Auto 2800 /uL (1500-7000); Neutrophils Percent Auto 62.4 % (50-75); Platelet Count 225 X10^3/uL (150-400); Red Blood Cell Count 5.19 X10^6/uL (4.5-5.9); Red Cell Distribution Width 14.2 % (11.6-14.8); White Blood Cell Count 4.4 X10^3/uL (4.5-11.0)
[2024-02-18 20:54] LABS: BUN Creatinine Ratio 32.1 (6-22); Blood Urea Nitrogen 27 mg/dL (9-20); Calcium 9.1 mg/dL (8.4-10.2); Carbon Dioxide 27 mmol/L (22-32); Chloride 104 mmol/L (98-107); Cholesterol 223 mg/dL (140-199); Estimated Glomerular Filt Rate > 60 mL/min (>60); Glucose 80 mg/dL (80-110); HDL Cholesterol 48 mg/dL (40-60); HEMOLYSIS < 15 (0-50); LDL Cholesterol Calculated 145 mg/dL (<100); Sodium 137 mmol/L (137-145); Triglycerides 150 mg/dL (35-150)
[2024-02-18 21:21] LABS: TSH w/ Reflex to FT4 1.26 uIU/mL (0.47-4.68)
[2024-02-18 21:40] LABS: Vitamin B12 642 pg/mL (239-931)
== END ==
PROVIDERS: PCP Family Medicine; Visit Provider Physician Assistant Medical
DX: I25.10 Atherosclerotic heart disease of native coronary artery without angina pectoris (principal); D72.810 Lymphocytopenia; R74.8 Abnormal levels of other serum enzymes; I10 Essential (primary) hypertension; E78.00 Pure hypercholesterolemia, unspecified; Z95.1 Presence of aortocoronary bypass graft; G62.9 Polyneuropathy, unspecified
CPT/HCPCS: 80048; 80061; 82607; 83036; 84155; 84165; 84443; 85025

== ENCOUNTER → 2024-03-31 10:47 | Outpatient (CLI) | payer MEDICARE, SELFPAY | PROVIDERS: PCP Family Medicine; Visit Provider Physician Assistant Medical | DX: L30.9 Dermatitis, unspecified (principal) | CPT/HCPCS: 87070; 87075; 87205 ==

== ENCOUNTER → 2024-10-04 10:35 | Outpatient (CLI) | payer MEDICARE, SELFPAY ==
[2024-10-04 19:08] LABS: Cholesterol 130 mg/dL (140-199); Glucose 84 mg/dL (70-99); HDL Cholesterol 43 mg/dL (40-60); LDL Cholesterol Calculated 74 mg/dL (<100); Triglycerides 67 mg/dL (35-150)
[2024-10-04 19:41] LABS: Prostate Specific Antigen Scrn 2.57 ng/mL (0.1-4.0)
[2024-10-05 20:51] LABS: Hep C Virus Ab w/Reflex Quant NEGATIVE s/c (NEGATIVE)
== END ==
PROVIDERS: PCP Family Medicine; Visit Provider Family Medicine
DX: Z11.59 Encounter for screening for other viral diseases (principal); Z13.1 Encounter for screening for diabetes mellitus; Z12.5 Encounter for screening for malignant neoplasm of prostate; Z13.6 Encounter for screening for cardiovascular disorders
CPT/HCPCS: 80061; 82947; 86803; G0103

== ENCOUNTER → 2025-05-04 11:17 | Outpatient (CLI) | payer MEDICARE, SELFPAY ==
--- NOTE | 2025-05-04 11:18 | DI.RAD.S_ITS ---
PROCEDURE: FL BARIUM SWALLOW INDICATIONS: Dysphagia COMPARISON: None. FINDINGS: Function: There is normal esophageal peristalsis. No spontaneous or provoked gastroesophageal reflux. Morphology: Air-contrast images demonstrate normal mucosal morphology. Single contrast views show no esophageal strictures, extrinsic mass effects, or diverticula. Limited images of the stomach demonstrate normal appearance. IMPRESSION: Normal examination Dictated by: Yariel Tai M.D. on 05/04/2025 at 13:40 Approved by: Yariel Tai M.D. on 05/04/2025 at 13:42
== END ==
LOC: RAD 11:17
PROVIDERS: PCP Family Medicine; Referring Provider Surgery; Visit Provider Surgery
DX: R13.19 Other dysphagia (principal)
CPT/HCPCS: 74220